=== PATIENT | male | born 1960 | race Asian ===

== ENCOUNTER 2024-02-18 15:50 | Inpatient (IN) | payer OTHER ==
[2024-02-18 16:05] VITALS: BMI 30.4
[2024-02-18 17:40] LABS: BASO % 0.8 % (0-2.0); EOS % 1.2 % (0-4.5); HEMATOCRIT 21.1 % (35.4-49); LYMPH % 47.8 % (8-40); MCHC 27.8 g/dl (32.0-35.9); MEAN CELL VOLUME 57.2 fl (80-96); MEAN PLT VOLUME 7.8 fl (7.5-11.1); MONO % 10.4 % (3.8-10.2); NEUT % 39.8 % (42.8-82.8); PLATELET COUNT 291 10^3/uL (134-434); RDW 23.3 % (11.9-15.9); WHITE BLOOD COUNT 4.5 K/mm3 (4.0-10.0)
[2024-02-18 17:41] LABS: MCH 15.9 pg (25.7-33.7)
[2024-02-18 17:43] LABS: HEMOGLOBIN 5.9 GM/dL (11.7-16.9)
[2024-02-18 17:47] LABS: INR 1.34 (0.83-1.09)
[2024-02-18 17:53] LABS: CALCIUM 9.2 mg/dL (8.5-10.1)
[2024-02-18 17:54] LABS: ALBUMIN 4.1 g/dl (3.4-5.0); BLOOD UREA NITROGEN 13.4 mg/dL (7-18)
[2024-02-18 17:57] LABS: CREATININE 0.9 mg/dL (0.55-1.3)
[2024-02-18 17:59] LABS: TOT PROT 7.7 g/dl (6.4-8.2)
[2024-02-18 18:10] LABS: MACROCYTOSIS 0
[2024-02-18 18:30] LABS: ANISOCYTOSIS 3+; OVALOCYTE 2+; TARGET CELLS 2+; TEAR DROP CELLS 1+
[2024-02-18 18:31] LABS: PLATELET ESTIMATE ADEQUATE
[2024-02-18 19:01] VITALS: TEMP 98.1
[2024-02-18] MEDS ORDERED: FUROSEMIDE 40 MG/4 ML INJECTABLE VIAL ONE ×2 (21:37→23:11)
[2024-02-18] MEDS: FUROSEMIDE 40 MG/4 ML INJECTABLE VIAL IVPUSH ONE (21:40)
[2024-02-18 22:09] LABS: RETICULOCYTES 1.92 % (0.5-1.5)
[2024-02-18] MEDS ORDERED: methylPREDNISolone NA SUCC 40 MG/1 ML VIAL ONE (23:11)
[2024-02-18] MEDS ORDERED: FUROSEMIDE 40 MG/4 ML INJECTABLE VIAL IVPUSH ONE (23:30)
[2024-02-19 01:34] VITALS: BP 132/72; PULSE 84; RESP 16
[2024-02-19 01:46] LABS: HEMOGLOBIN 8.6 GM/dL (11.7-16.9); MCHC 29.6 g/dl (32.0-35.9); MEAN CELL VOLUME 62.2 fl (80-96); MEAN PLT VOLUME 8.1 fl (7.5-11.1); PLATELET COUNT 286 10^3/uL (134-434); RBC 4.66 M/mm3 (4.00-5.60); RDW 29.5 % (11.9-15.9); WHITE BLOOD COUNT 4.6 K/mm3 (4.0-10.0)
[2024-02-19 01:48] LABS: MCH 18.4 pg (25.7-33.7)
[2024-02-19 03:59] LABS: ANISOCYTOSIS 3+; MACROCYTOSIS 0; OVALOCYTE 1+
== END 2024-02-19 01:57 | disposition left against medical advice (07) | DRG 663 ==
LOC: JER 15:50 → JERBED 18:52
PROVIDERS: ADMIT Internal Medicine; ATTEND Internal Medicine
PROC: 30233N1 Transfusion of Nonautologous Red Blood Cells into Peripheral Vein, Percutaneous Approach (ICD-10-PCS; principal; 2024-02-18)
DX: D62 Acute posthemorrhagic anemia (principal); K64.9 Unspecified hemorrhoids; R00.2 Palpitations; R06.09 Other forms of dyspnea
CPT/HCPCS: 36415; 36430; 71045-TC-FY; 80053; 82272; 82607; 82728; 83540; 83550; 83615; 84443; 84484; 85025; 85045; 85610; 85730; 86850; 86900; 86901; 86922; 93005; 93010; 99285-25; P9058